=== PATIENT | female | born 1975 | race Caucasian/White ===

== ENCOUNTER 2016-12-22 20:00 | Emergency (ER) | payer MEDICAID, MEDICARE ==
[~2016-12-22] VITALS: Ht 165.1 cm; Wt 59.0 kg
[~2016-12-22 20:00] MED LIST: KEPP500 PO; LITH300T19 PO; OMEP20CA4 PO; PARO25TA5 PO; SUCR1TAB PO; TH50 GT; TRAZ-132 PO
[2016-12-23] MEDS ORDERED: HYDROCODONE/ACETAMINOPHEN 5/325MG TABLET PO ONE (00:15)
[2016-12-23] MEDS ORDERED: SULFAMETHOXAZOLE/TRIMETHOPRIM 800/160MG TABLET PO ONE (00:15)
[2016-12-23] MEDS ORDERED: CEFTRIAXONE SODIUM 1 G/VIAL IM ONE (00:15)
[2016-12-23] MEDS ORDERED: IBUPROFEN 400MG TABLET PO ONE (00:15)
[2016-12-23 00:41] VITALS: BP 115/72
== END 2016-12-23 02:24 | disposition home or self-care (01) ==
LOC: ER 20:10
DX: L97.529 Non-pressure chronic ulcer of other part of left foot with unspecified severity (principal); J45.909 Unspecified asthma, uncomplicated; E11.9 Type 2 diabetes mellitus without complications; I10 Essential (primary) hypertension; G40.909 Epilepsy, unspecified, not intractable, without status epilepticus; F15.10 Other stimulant abuse, uncomplicated; F11.10 Opioid abuse, uncomplicated; F17.210 Nicotine dependence, cigarettes, uncomplicated; Z98.84 Bariatric surgery status; Z88.6 Allergy status to analgesic agent
CPT/HCPCS: 73630; 81025; 82962; 96372; 99284; J0696; Z7610

== ENCOUNTER 2017-11-11 01:43 | Emergency (ER) | payer MEDICAID, MEDICARE ==
[~2017-11-11] VITALS: Ht 165.1 cm; Wt 68.0 kg
[~2017-11-11 01:43] MED LIST changes: -LITH300T19 PO; +LITHBID PO; +PARO25TA16 PO; -PARO25TA5 PO
[2017-11-11] MEDS ORDERED: VANCOMYCIN 1,250 MG in DEXT 5% WATER 250 ML IV SCH (03:45)
[2017-11-11] MEDS ORDERED: MORPHINE SULFATE 4 MG/ML CPJ (NOT FOR IM USE) IV ONE (03:45)
[2017-11-11 06:13] LABS: BASOPHILS % 1.5 % (0.0-2.0); HEMATOCRIT. 30.3 % (36.0-48.0); HEMOGLOBIN. 9.1 g/dL (12.0-16.0); LYMPHOCYTES % 27.1 % (20.0-50.0); MEAN CORPUSCULAR HEMOGLOBIN 19.6 pg (28.0-32.0); MEAN CORPUSCULAR VOLUME 65.7 fL (81.0-99.0); MEAN PLATELET VOLUME 8.7 fl (7.4-10.4); MONOCYTES % 9.7 % (2.0-8.0); NEUTROPHILS % 58.7 % (40.0-76.0); PLATELET 225 x1000/uL (130-400); RED BLOOD CELL COUNT 4.61 mill/uL (4.2-5.4); RED CELL DISTRIBUTION WIDTH 20.5 % (11.6-14.6)
[2017-11-11 06:15] LABS: CHLORIDE 112 mEq/L (98-107); PROTHROMBIN TIME 10.3 sec (9.4-11.6)
[2017-11-11] MEDS ORDERED: LIDOCAINE 5% PATCH TOP SCH (06:30)
[2017-11-11 07:05] LABS: PLATELET ESTIMATE NORMAL
[2017-11-11 08:51] VITALS: BP 110/50
== END 2017-11-11 08:59 | disposition home or self-care (01) ==
LOC: ER 01:43 → CANBEDREQ 16:04
DX: M54.5 Low back pain (principal); L03.116 Cellulitis of left lower limb; L03.115 Cellulitis of right lower limb; R20.0 Anesthesia of skin; R79.1 Abnormal coagulation profile; J45.909 Unspecified asthma, uncomplicated; E11.9 Type 2 diabetes mellitus without complications; I10 Essential (primary) hypertension; F15.10 Other stimulant abuse, uncomplicated; Z88.5 Allergy status to narcotic agent
CPT/HCPCS: 36415; 71045; 72146; 72148; 80053; 83605; 85025; 85610; 87040; 93005; 96365; 96366; 96375; 99285; J2270; J3370; J7060